=== PATIENT | male | born 1970 | race Caucasian/White ===

== ENCOUNTER 2021-07-17 07:51 | Emergency (ER) | payer OTHER ==
[~2021-07-17] VITALS: Ht 175.3 cm; Wt 75.7 kg
--- NOTE | 2021-07-17 07:51 | NUR ---
TO ER BED 9. BIB SELF C/O "I SUDDENLY CANT MOVE AND UNABLE TO TALK, LIKE I CANT GET THE WORDS OUT HAPPENED YESTERDAY AT 11AM." PT IS A&OX4, VITALS ARE STABLE, BREATHING IS EVEN AND UNLABORED. PT ADMITTED TO DRINKING LAST NIGHT. PT UNALBLE TO PROVIDE URINE SAMPLE RIGHT NOW, URINE CUP PROVIDED.
[2021-07-17] MEDS ORDERED: ESCI10TA PO (07:55)
--- NOTE | 2021-07-17 07:56 | NUR ---
DR DC AT BEDSIDE FOR EVAL
--- NOTE | 2021-07-17 08:01 | NUR ---
IV ESTABLISHED R AC 20G. LABS COLLECTED AND DRAWN AT [facility]. CONVERTED TO SALINE LOCK.
[2021-07-17 08:17] LABS: BASOPHILS % (AUTO) 0.6 % (0.0-2.0); EOSINOPHILS % (AUTO) 0.4 % (0.0-6.0); HEMATOCRIT 43 % (39-51); HEMOGLOBIN 14.7 g/dL (13.5-17.5); LYMPHOCYTES % (AUTO) 27.2 % (20.0-44.0); MEAN CORPUSCULAR HGB CONC 34 g/dl (31.0-36.0); MEAN CORPUSCULAR VOLUME 98 fL (80-96); MONOCYTES # (AUTO) 0.5 K/uL (0.1-1.30); MONOCYTES % (AUTO) 12.9 % (2.0-12.0); NEUTROPHILS # (AUTO) 2.2 K/uL (1.8-8.9); NEUTROPHILS % (AUTO) 58.9 % (43.0-81.0); PLATELET COUNT (AUTO) 157 K/uL (150-450); WHITE BLOOD COUNT (AUTO) 3.7 K/uL (4.3-11.0)
[2021-07-17 08:32] LABS: POTASSIUM 3.7 mmol/L (3.5-5.1)
[2021-07-17 08:36] LABS: ALBUMIN 3.5 g/dL (3.4-5.0); BILIRUBIN,DIRECT 0.4 mg/dL (0.0-0.2); BILIRUBIN,TOTAL 0.7 mg/dL (0.2-1.0); TOTAL PROTEIN, SERUM 6.6 g/dL (6.4-8.2)
--- NOTE | 2021-07-17 08:41 | NUR ---
PT TAKEN TO CT VIA [facility]
--- NOTE | 2021-07-17 08:50 | NUR ---
PT RETURNED FROM CT VIA [facility]
[2021-07-17 09:03] LABS: THYROID STIMULATING HORMONE 1.326 uIU/mL (0.358-3.74)
--- NOTE | 2021-07-17 09:17 | NUR ---
DIV removed. Catheter intact and site benign. Pressure and 4x4 applied to site. No bleeding noted.Patient discharged to home in stable condition. Written and verbal after care instructions given. Patient verbalizes understanding of instruction.
[2021-07-17 09:18] VITALS: BP 122/81
[2021-07-17 09:21] LABS: BILIRUBIN,URINE NEGATIVE (NEGATIVE); COLOR,URINE YELLOW (YELLOW); LEUKOCYTE ESTERASE ,URINE NEGATIVE (NEGATIVE); NITRITE, URINE NEGATIVE (NEGATIVE); PROTEIN,URINE NEGATIVE (NEGATIVE); UGLUCOSE NEGATIVE (NEGATIVE); UROBILINOGEN,URINE 0.2 EU/dL (0.2)
== END 2021-07-17 09:19 | disposition home or self-care (01) ==
LOC: ER 07:56
DX: F10.10 Alcohol abuse, uncomplicated (principal); F32.A Depression, unspecified; F41.9 Anxiety disorder, unspecified; F17.200 Nicotine dependence, unspecified, uncomplicated; Z60.2 Problems related to living alone; Z79.899 Other long term (current) drug therapy; Y90.7 Blood alcohol level of 200-239 mg/100 ml
CPT/HCPCS: 36415; 70450-TC; 71045-TC; 80048-TC; 80076-TC; 82140-TC; 84443-TC; 85025-TC; 85730-TC; G0480

== ENCOUNTER 2021-08-25 01:46 | Inpatient (IN) | payer OTHER ==
[~2021-08-25] VITALS: Ht 175.3 cm; Wt 79.4 kg
[~2021-08-25 01:46] MED LIST: ESCI10TA PO
--- NOTE | 2021-08-25 02:00 | NUR ---
TO ER BED 13. [id number] ACCOMPANIED BY [employer] FROM HOME C/O INGESTING KRATOM IN THE AM. PT HAS PRESSURED SPEECH AND IS INCOHERENT. PT IS ALSO JITTERY. FOLLOWS SIMPLE COMMANDS. CONNECTED TO MONITOR. 1:1 SITTER. AWAITING MD FISHER
[2021-08-25] MEDS ORDERED: LORAZEPAM 1 MG TABLET ONE (02:37)
--- NOTE | 2021-08-25 02:43 | NUR ---
PT TAKEN FOR CT SCAN
--- NOTE | 2021-08-25 02:59 | NUR ---
IV LINE ESTABLISHED , LFA18G.
[2021-08-25] MEDS ORDERED: LORAZEPAM 1 MG TABLET PO ONE (03:00)
[2021-08-25] MEDS ORDERED: IV NS 0.9% 1,000 ML BAG IV ONE (03:00)
--- NOTE | 2021-08-25 03:07 | NUR ---
URINE COLLECTED AND SENT TO LAB
--- NOTE | 2021-08-25 03:07 | NUR ---
BLOOD COLLECTED AND SENT TO LAB
--- NOTE | 2021-08-25 03:08 | NUR ---
COVID ANTIGEN SWAB COLLECTED AND SENT TO LAB
[2021-08-25 03:42] LABS: BILIRUBIN,URINE MODERATE (NEGATIVE); COLOR,URINE YELLOW (YELLOW); LEUKOCYTE ESTERASE ,URINE NEGATIVE (NEGATIVE); NITRITE, URINE NEGATIVE (NEGATIVE); PH,URINE 5.5 (5.0-8.0); PROTEIN,URINE 30 mg/dl (NEGATIVE); UGLUCOSE NEGATIVE (NEGATIVE); UROBILINOGEN,URINE 0.2 EU/dL (0.2)
[2021-08-25 03:42] LABS: BASOPHILS % (AUTO) 0.2 % (0.0-2.0); HEMATOCRIT 37 % (39-51); HEMOGLOBIN 12.6 g/dL (13.5-17.5); LYMPHOCYTES # (AUTO) 0.5 K/uL (0.8-4.8); LYMPHOCYTES % (AUTO) 6.4 % (20.0-44.0); MEAN CORPUSCULAR HGB CONC 34 g/dl (31.0-36.0); MEAN CORPUSCULAR VOLUME 99 fL (80-96); MONOCYTES # (AUTO) 1.1 K/uL (0.1-1.30); MONOCYTES % (AUTO) 13.8 % (2.0-12.0); NEUTROPHILS # (AUTO) 6.5 K/uL (1.8-8.9); NEUTROPHILS % (AUTO) 79.6 % (43.0-81.0); PLATELET COUNT (AUTO) 136 K/uL (150-450); WHITE BLOOD COUNT (AUTO) 8.2 K/uL (4.3-11.0)
[2021-08-25 03:53] LABS: CALCIUM, SERUM 8.8 mg/dL (8.5-10.1); CARBON DIOXIDE 19 mmol/L (21-32); CHLORIDE 93 mmol/L (98-107); CREATININE 1.4 mg/dL (0.6-1.3); GLUCOSE 56 mg/dL (74-106); SODIUM SERUM 135 mmol/L (136-145); UREA NITROGEN, BLOOD 29 mg/dL (7-18)
[2021-08-25 03:59] LABS: ALANINE AMINOTRANSFERASE 48 U/L (12-78); ALBUMIN 3.3 g/dL (3.4-5.0); ALKALINE PHOSPHATASE 136 U/L (46-116); ASPARTATE AMINOTRANSFERASE 78 U/L (15-37); BILIRUBIN,DIRECT 0.8 mg/dL (0.0-0.2); BILIRUBIN,TOTAL 1.7 mg/dL (0.2-1.0); TOTAL PROTEIN, SERUM 6.7 g/dL (6.4-8.2)
[2021-08-25 04:00] LABS: ACETAMINOPHEN 0 ug/ml (10-30); ALCOHOL, BLOOD < 3 mg/dL (0-0)
[2021-08-25] MEDS ORDERED: DEXTROSE 50%-WATER 50 ML DISP.SYRIN ONE (04:14)
[2021-08-25] MEDS ORDERED: Thiamine 100 MG/ML VIAL ONE (04:15)
[2021-08-25] MEDS ORDERED: IV D5 LR 1,000 ML IV ONE (04:30)
[2021-08-25] MEDS ORDERED: DEXTROSE 50%-WATER 50 ML DISP.SYRIN IVP ONE (04:30)
[2021-08-25] MEDS ORDERED: Thiamine 100 MG in IV D5W 50 ML IV SCH (04:30)
[2021-08-25] MEDS ORDERED: LORAZEPAM INJ 2 MG/ML VIAL IV ONE (04:30)
[2021-08-25] MEDS ORDERED: LORAZEPAM INJ 2 MG/ML VIAL ONE ×2 (04:32→19:47)
--- NOTE | 2021-08-25 04:40 | NUR ---
EPIC PAGED FOR PANEL
--- NOTE | 2021-08-25 05:08 | NUR ---
US AT BEDSIDE
[2021-08-25] MEDS ORDERED: ONDANSETRON HCL/PF 4 MG/2 ML VIAL IVP PRN (06:00)
[2021-08-25] MEDS ORDERED: Z GUARD REMEDY 4 OZ OINT TP PRN (06:00)
[2021-08-25] MEDS ORDERED: ACETAMINOPHEN 325 MG TABLET PO PRN (06:00)
[2021-08-25] MEDS ORDERED: diphenhydrAMINE HCL 50 MG/ML VIAL IV ONE ×2 (06:30→23:30)
[2021-08-25] MEDS ORDERED: diphenhydrAMINE HCL 50 MG/ML VIAL ONE ×2 (06:31→23:21)
[2021-08-25 07:22] LABS: BACTERIA,URINE Few /HPF (None Seen); RBC,URINE 0-2 /HPF (0-2); WBC,URINE 0-2 /HPF (0-3)
[2021-08-25 07:23] LABS: CALCIUM OXALATE CRYSTALS,UR Few /HPF (None Seen); HYALINE CASTS, URINE Few /LPF (None Seen); SQUAMOUS EPITHELIAL CELL,UR Few /HPF (None Seen); URINE AMORPHOUS URATE Moderate /HPF (None Seen)
[2021-08-25] MEDS: PANTOPRAZOLE 40 MG TABLET.DR PO SCH (07:30)
[2021-08-25] MEDS ORDERED: FOLIC ACID 1 MG TABLET ONE (08:02)
[2021-08-25] MEDS ORDERED: PANTOPRAZOLE 40 MG TABLET.DR PO ONE (08:03)
[2021-08-25] MEDS ORDERED: THIAMINE HCL 100 MG TABLET ONE (08:03)
[2021-08-25] MEDS: FOLIC ACID 1 MG TABLET PO SCH (08:18)
[2021-08-25] MEDS: IV D5 LR 1,000 ML IV SCH ×2 (08:18→19:00)
--- NOTE | 2021-08-25 08:18 | NUR ---
SEEN BY DR MARTIN
[2021-08-25] MEDS: THIAMINE HCL 100 MG TABLET PO SCH (08:19)
--- NOTE | 2021-08-25 10:00 | NUR ---
PT RESTING IN BED, VITALS ARE WITHIN NORMAL LIMITS. ALL NEEDS MET AT THIS TIME.
[2021-08-25 10:26] LABS: BASOPHILS % (AUTO) 0.2 % (0.0-2.0); EOSINOPHILS % (AUTO) 0.1 % (0.0-6.0); HEMATOCRIT 33 % (39-51); HEMOGLOBIN 11.2 g/dL (13.5-17.5); LYMPHOCYTES # (AUTO) 0.8 K/uL (0.8-4.8); LYMPHOCYTES % (AUTO) 13.3 % (20.0-44.0); MEAN CORPUSCULAR HGB CONC 34 g/dl (31.0-36.0); MEAN CORPUSCULAR VOLUME 99 fL (80-96); NEUTROPHILS # (AUTO) 4.5 K/uL (1.8-8.9); NEUTROPHILS % (AUTO) 70.4 % (43.0-81.0); PLATELET COUNT (AUTO) 124 K/uL (150-450); RED BLOOD CELL COUNT(AUTO) 3.32 MIL/uL (4.5-6.0); WHITE BLOOD COUNT (AUTO) 6.4 K/uL (4.3-11.0)
[2021-08-25 10:41] LABS: CALCIUM, SERUM 7.5 mg/dL (8.5-10.1); CREATININE 0.9 mg/dL (0.6-1.3); MAGNESIUM 1.4 mg/dL (1.8-2.4); POTASSIUM 3.6 mmol/L (3.5-5.1)
[2021-08-25] MEDS: LORAZEPAM INJ 2 MG/ML VIAL IV PRN (19:51)
--- NOTE | 2021-08-25 20:31 | NUR ---
PT IS AGITATED UPON ASSESSMENT, PRESSURED SPEECH. PT IS REDIRECTABLE AND FOLLOWS SOME SIMPLE COMMANDS. WILL CONTINUE TO MONITOR.
--- NOTE | 2021-08-26 00:53 | NUR ---
PATIENT TALKING TO HIMSELF, PROVIDED WARM BLANKET.
[2021-08-26] MEDS ORDERED: LORAZEPAM INJ 2 MG/ML VIAL ONE ×2 (02:28→15:08)
[2021-08-26] MEDS: LORAZEPAM INJ 2 MG/ML VIAL IV PRN ×2 (02:32→15:13)
[2021-08-26] MEDS: IV D5 LR 1,000 ML IV SCH ×2 (04:14→15:21)
[2021-08-26 05:17] LABS: BASOPHILS % (AUTO) 0.2 % (0.0-2.0); EOSINOPHILS % (AUTO) 0.1 % (0.0-6.0); HEMATOCRIT 36 % (39-51); HEMOGLOBIN 12.2 g/dL (13.5-17.5); LYMPHOCYTES # (AUTO) 0.6 K/uL (0.8-4.8); MEAN CORPUSCULAR HGB CONC 34 g/dl (31.0-36.0); MEAN CORPUSCULAR VOLUME 100 fL (80-96); MONOCYTES # (AUTO) 0.7 K/uL (0.1-1.30); MONOCYTES % (AUTO) 14.2 % (2.0-12.0); NEUTROPHILS # (AUTO) 3.8 K/uL (1.8-8.9); NEUTROPHILS % (AUTO) 73.5 % (43.0-81.0); PLATELET COUNT (AUTO) 127 K/uL (150-450); RED BLOOD CELL COUNT(AUTO) 3.58 MIL/uL (4.5-6.0); WHITE BLOOD COUNT (AUTO) 5.1 K/uL (4.3-11.0)
[2021-08-26 05:31] LABS: CREATININE 0.9 mg/dL (0.6-1.3); MAGNESIUM 1.5 mg/dL (1.8-2.4); PHOSPHORUS 2.6 mg/dL (2.5-4.9)
[2021-08-26 05:41] LABS: POTASSIUM 2.8 mmol/L (3.5-5.1)
--- NOTE | 2021-08-26 05:42 | NUR ---
CRITICAL: K 2.8
--- NOTE | 2021-08-26 05:45 | NUR ---
NOTIFIED DR LICEA OF CRITICAL LAB , K 2.8. AWAITING MD ORDERS.
--- NOTE | 2021-08-26 06:07 | NUR ---
PT EASILY AROUSABLE, A/OX2. DOES NOT KNOW WHY OR HOW HE ENDED UP AT THE HOSPITAL. PT CALM AND COOPERATIVE FOLLOWING COMMANDS. WILL CONT TO MONITOR PT
[2021-08-26] MEDS ORDERED: POTASSIUM CHLORIDE 20 MEQ TAB.PRT.SR PO ONE ×4 (06:37→09:53)
[2021-08-26] MEDS: PANTOPRAZOLE 40 MG TABLET.DR PO SCH (07:30)
--- NOTE | 2021-08-26 08:00 | NUR ---
Sleeping soundly. VSS NO obvious distress Awaiting room assignment
[2021-08-26] MEDS ORDERED: FOLIC ACID 1 MG TABLET ONE (09:52)
[2021-08-26] MEDS ORDERED: PANTOPRAZOLE 40 MG TABLET.DR PO ONE (09:53)
[2021-08-26] MEDS ORDERED: THIAMINE HCL 100 MG TABLET ONE (09:54)
[2021-08-26] MEDS: FOLIC ACID 1 MG TABLET PO SCH (09:56)
[2021-08-26] MEDS: THIAMINE HCL 100 MG TABLET PO SCH (09:57)
--- NOTE | 2021-08-26 10:00 | NUR ---
No acute changes. Status quo
[2021-08-26] MEDS ORDERED: MAGNESIUM OXIDE 400 MG TABLET PO ONE ×2 (12:00→13:30)
--- NOTE | 2021-08-26 12:00 | NUR ---
Able to drink some po fluids and used urinal-voided freely
--- NOTE | 2021-08-26 15:00 | NUR ---
Pt appears anxious, slight shakiness noted- medicated as ordered
--- NOTE | 2021-08-26 17:48 | NUR ---
Dozing on/off. VSS NO obvious distress No beds available at this time
[2021-08-26] MEDS ORDERED: CHLORDIAZEPOXIDE HCL 25 MG CAPSULE ONE (19:27)
--- NOTE | 2021-08-26 19:27 | NUR ---
Endorsed care to ALISON Cook
[2021-08-26] MEDS: CHLORDIAZEPOXIDE HCL 25 MG CAPSULE PO SCH (19:33)
--- NOTE | 2021-08-26 22:24 | NUR ---
PT SLEEPING COMOFORTABLY BREATHING EVEN AND UNLABORED. CALL LIGHT WITHIN REACH AND SITTER AT BEDSIDE. V/S WNL.
[2021-08-27] MEDS: IV D5 LR 1,000 ML IV SCH ×2 (03:12→12:44)
--- NOTE | 2021-08-27 04:58 | NUR ---
PT SLEEPING COMFORTABLY BREATHING EVEN AND UNLABORED. PT REMAINS ON MONITOR AND V/S WNL.
[2021-08-27 05:53] LABS: BASOPHILS % (AUTO) 0.7 % (0.0-2.0); HEMATOCRIT 34 % (39-51); HEMOGLOBIN 11.6 g/dL (13.5-17.5); LYMPHOCYTES % (AUTO) 24.5 % (20.0-44.0); MEAN CORPUSCULAR HGB CONC 34 g/dl (31.0-36.0); MEAN CORPUSCULAR VOLUME 98 fL (80-96); MONOCYTES # (AUTO) 0.7 K/uL (0.1-1.30); MONOCYTES % (AUTO) 17.2 % (2.0-12.0); NEUTROPHILS # (AUTO) 2.2 K/uL (1.8-8.9); NEUTROPHILS % (AUTO) 56.6 % (43.0-81.0); PLATELET COUNT (AUTO) 142 K/uL (150-450); RED BLOOD CELL COUNT(AUTO) 3.43 MIL/uL (4.5-6.0)
[2021-08-27 06:04] LABS: CREATININE 0.7 mg/dL (0.6-1.3); MAGNESIUM 1.5 mg/dL (1.8-2.4); POTASSIUM 3.3 mmol/L (3.5-5.1)
[2021-08-27] MEDS ORDERED: CHLORDIAZEPOXIDE HCL 25 MG CAPSULE ONE (07:46)
[2021-08-27] MEDS ORDERED: PANTOPRAZOLE 40 MG TABLET.DR PO ONE (07:46)
[2021-08-27] MEDS ORDERED: FOLIC ACID 1 MG TABLET ONE (07:46)
[2021-08-27] MEDS ORDERED: THIAMINE HCL 100 MG TABLET ONE (07:47)
[2021-08-27] MEDS ORDERED: LORAZEPAM INJ 2 MG/ML VIAL ONE (07:52)
[2021-08-27] MEDS: CHLORDIAZEPOXIDE HCL 25 MG CAPSULE PO SCH ×2 (08:05→16:49)
[2021-08-27] MEDS: THIAMINE HCL 100 MG TABLET PO SCH (08:05)
[2021-08-27] MEDS: FOLIC ACID 1 MG TABLET PO SCH (08:05)
[2021-08-27] MEDS: PANTOPRAZOLE 40 MG TABLET.DR PO SCH (08:05)
[2021-08-27] MEDS: LORAZEPAM INJ 2 MG/ML VIAL IV PRN (08:22)
--- NOTE | 2021-08-27 08:30 | NUR ---
DR. MARTIN AT BEDSIDE.
--- NOTE | 2021-08-27 08:32 | NUR ---
DAVID (EX-) - [phone]. JEFFREY (FATHER) - [phone].
[2021-08-27] MEDS ORDERED: Magnesium 1GM/D5W 100ML PREMIX 100 ML IV ONE (08:38)
[2021-08-27] MEDS: Magnesium 1GM/D5W 100ML PREMIX 100 ML IV SCH ×3 (08:39→12:15)
--- NOTE | 2021-08-27 08:46 | NUR ---
REPORT GIVEN TO CHE ROSAS FOR ELAN
[2021-08-27 08:56] VITALS: BP 140/59
--- NOTE | 2021-08-27 08:58 | NUR ---
NETWORK SECURITY OFFICERCHIEF TECHNOLOGIST NOTES RECEIVED PATIENT FROM ER ENDORSED BY ALISON PAIZ. PATIENT IS AWAKE, ALERT AND A/O X3-4. ON ROOM AIR TOLERATING WELL. NO SOB NOTED. NOT IN DISTRESS. ON 5150 HOLD WITH SITTER. WITH NO COMPLAINTS OF PAIN OR DISCOMFORT AT THIS TIME. WITH IV ACCESS AT THE LEFT FOREARM G18 WITH IVF D5LR AT 90ML/HR AND ON MAGNESIUM INFUSION FOR MAGNESIUM REPLACEMENT INFUSING WELL. MADE COMFORTABLE ON BED. SKIN ASSESSMENT DONE AND PHOTOS TAKEN PLACED ON CHART. SAFETY MEASURES IN PLACED. CALL LIGHT WITHIN REACH. BED ON LOWEST LOCKED POSITION, SIDE RAILS UP X2. WILL CONTINUE TO MONITOR.
[2021-08-27 09:21] LABS: EOSINOPHILS % (MANUAL) 2 % (0-4); LYMPHOCYTES % (MANUAL) 21 % (16-48); METAMYELOCYTES % 1 % (0-0); MONOCYTES % (MANUAL) 19 % (0-11.0); NEUTROPHILS % (MANUAL) 57 (42-76)
[2021-08-27] MEDS: POTASSIUM CL. PREMIX PERIPHER. 50 ML IV SCH ×4 (13:34→18:58)
--- NOTE | 2021-08-27 18:42 | NUR ---
COPIER REPAIR TECHNICIAN CLOSING NOTES PATIENT RESTING ON BED, ALERT AND A/O X3-4. ON ROOM AIR TOLERATING WELL. NO SOB NOTED. NOT IN DISTRESS. WITH NO COMPLAINTS OF PAIN OR DISCOMFORT AT THIS TIME. WITH IV ACCESS AT THE LEFT FOREARM G18 WITH IVF D5LR AT 90ML/HR AND ON POTASSIUM INFUSION FOR ELECTROLYTE REPLACEMENT INFUSING WELL. ON TELE MONITOR CURRENTLY READING SINUS RHYTHM AT 66BPM. DUE MEDS GIVEN. SAFETY MEASURES IN PLACED. CALL LIGHT WITHIN REACH. BED ON LOWEST LOCKED POSITION, SIDE RAILS UP X2. WILL ENDORSE TO NEXT SHIFT FOR ELAN.
--- NOTE | 2021-08-27 19:15 | NUR ---
DIATHERMY EQUIPMENT REPAIRER OPENING NOTES RECEIVED PATIENT IN BED; AWAKE, ALERT AND ORIENTED X3. BREATHING IS EVEN AND NONLABORED. ON ROOM AIR, WELL TOLERATED. NOT IN ANY FORM OF RESPIRATORY DISTRESS. WITH IV ACCESS OF LEFT FOREARM G#18 INFUSING WITH D5LR @ 90ML/HR; PATENT AND PATENT. ON TELEMETRY MONITORING WITH CURRENT READING OF SINUS RHYTHM @ 66BPM. DENIES ANY PAIN OR DISCOMFORT OF THIS TIME. ABLE TO MAKE NEEDS KNOWN. SAFETY MEASURES IMPLEMENTED: CALL LIGHT AND TABLE WITHIN EASY REACH, SIDE RAILS UP X2, BED IN LOWEST LOCKED POSITION. WILL CONTINUE TO MONITOR
[2021-08-27 20:00] VITALS: BP 129/80
[2021-08-28] VITALS: BP 140/85
[2021-08-28 00:16] VITALS: BP 140/85
[2021-08-28] MEDS: IV D5 LR 1,000 ML IV SCH (00:44)
[2021-08-28 04:00] VITALS: BP 143/90
[2021-08-28 04:10] VITALS: BP 143/90
[2021-08-28 06:43] LABS: BASOPHILS % (AUTO) 0.8 % (0.0-2.0); EOSINOPHILS % (AUTO) 1.4 % (0.0-6.0); HEMATOCRIT 33 % (39-51); HEMOGLOBIN 11.7 g/dL (13.5-17.5); LYMPHOCYTES # (AUTO) 0.9 K/uL (0.8-4.8); LYMPHOCYTES % (AUTO) 24.7 % (20.0-44.0); MEAN CORPUSCULAR HGB CONC 35 g/dl (31.0-36.0); MEAN CORPUSCULAR VOLUME 98 fL (80-96); MONOCYTES # (AUTO) 0.7 K/uL (0.1-1.30); NEUTROPHILS % (AUTO) 53.1 % (43.0-81.0); PLATELET COUNT (AUTO) 157 K/uL (150-450); RED BLOOD CELL COUNT(AUTO) 3.42 MIL/uL (4.5-6.0); WHITE BLOOD COUNT (AUTO) 3.7 K/uL (4.3-11.0)
--- NOTE | 2021-08-28 07:00 | NUR ---
ORTHOTIC TECHNICIAN CLOSING NOTES PATIENT IS IN BED; AWAKE, ALERT AND ORIENTED X3. BREATHING IS EVEN AND NONLABORED. ON ROOM AIR, WELL TOLERATED. NOT IN ANY FORM OF RESPIRATORY DISTRESS. DENIES ANY PAIN OR DISCOMFORT OF THIS TIME. NEEDS ATTENDED. SAFETY MEASURES IN PLACE. ENDORSED TO MORNING SHIFT FOR ELAN.
[2021-08-28 07:07] LABS: CALCIUM, SERUM 8.6 mg/dL (8.5-10.1); CREATININE 0.6 mg/dL (0.6-1.3); MAGNESIUM 1.6 mg/dL (1.8-2.4); POTASSIUM 4.1 mmol/L (3.5-5.1)
--- NOTE | 2021-08-28 07:30 | NUR ---
PT RECEIVED RESTING COMFORTABLY IN BED. NO S/S OR C/O PAIN OR DISTRESS NOTED. SIDE RAILS UP X2. CALL LIGHT LEFT WITHIN REACH. WILL CONTINUE PLAN OF CARE.
[2021-08-28 08:00] VITALS: BP 162/94
[2021-08-28] MEDS: Magnesium 1GM/D5W 100ML PREMIX 100 ML IV SCH ×2 (08:56→10:07)
[2021-08-28] MEDS: THIAMINE HCL 100 MG TABLET PO SCH (08:57)
[2021-08-28] MEDS: PANTOPRAZOLE 40 MG TABLET.DR PO SCH (08:57)
[2021-08-28] MEDS: FOLIC ACID 1 MG TABLET PO SCH (08:57)
[2021-08-28] MEDS: CHLORDIAZEPOXIDE HCL 25 MG CAPSULE PO SCH (08:57)
[2021-08-28] MEDS ORDERED: ESCITALOPRAM OXALATE (10 MG) 10 MG TABLET PO SCH (09:00)
[2021-08-28 12:00] VITALS: BP 125/74
[2021-08-28] MEDS ORDERED: NICOTINE PATCH (7MG) 7 MG PATCH.TD24 TD SCH (13:30)
--- NOTE | 2021-08-28 13:30 | NUR ---
AMA PT STATES THEY WANT TO LEAVE HOSPITAL AGAINST MEDICAL ADVICE (AMA). PATIENT IS ENCOURAGED TO STAY FOR FURTHER TREATMENT/STABILIZATION. DR. MARTIN HAS BEEN NOTIFIED OF PATIENT'S WISHES. PATIENT ADVISED OF THE RISKS OF LEAVING AMA. PATIENT VERBALIZED UNDERSTANDING. PATIENT ENCOURAGED TO RETURN TO ER IF SYMPTOMS DO NOT IMPROVE OR WORSEN.
== END 2021-08-28 13:30 | disposition left against medical advice (07) | DRG 682 ==
LOC: ER 01:49 → TRANSITION 07:45 → TELE 08-27 08:37
PROVIDERS: ADMIT Family Medicine; ATTEND Family Medicine
DX: N17.0 Acute kidney failure with tubular necrosis (principal); G92.8 Other toxic encephalopathy; E44.1 Mild protein-calorie malnutrition; E87.2 Acidosis; E16.2 Hypoglycemia, unspecified; E86.9 Volume depletion, unspecified; Z20.822 Contact with and (suspected) exposure to COVID-19; F41.9 Anxiety disorder, unspecified; Z73.6 Limitation of activities due to disability; D69.6 Thrombocytopenia, unspecified; D63.8 Anemia in other chronic diseases classified elsewhere; E88.09 Other disorders of plasma-protein metabolism, not elsewhere classified; E87.6 Hypokalemia; E83.42 Hypomagnesemia; F10.10 Alcohol abuse, uncomplicated; F32.9 Major depressive disorder, single episode, unspecified; F19.159 Other psychoactive substance abuse with psychoactive substance-induced psychotic disorder, unspecified; Y90.0 Blood alcohol level of less than 20 mg/100 ml
CPT/HCPCS: 36415; 70450-TC; 76705-TC; 80048-TC; 80076-TC; 81001; 82010-TC; 82962-TC; 83605-TC; 83735-TC; 84100-TC; 85025-TC; 87081-TC; C9803; G0378; G0480; J1200; J2060; J3411; J3475; J3480; J3490; J7030; J7042; J7050; J7120